=== PATIENT | female | born 1935 | race Two or more races ===

== ENCOUNTER 2019-03-18 18:11 | Emergency (ER) | payer OTHER, MEDICARE ==
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
[2019-03-18 20:17] VITALS: BP 174/50
== END 2019-03-18 20:17 | disposition home or self-care (01) ==
LOC: ER 18:11
DX: S13.4XXA Sprain of ligaments of cervical spine, initial encounter (principal); R51 Headache; R07.9 Chest pain, unspecified; V49.50XA Passenger injured in collision with unspecified motor vehicles in traffic accident, initial encounter; I10 Essential (primary) hypertension; E11.9 Type 2 diabetes mellitus without complications; Z88.0 Allergy status to penicillin
CPT/HCPCS: 70450; 71046; 72125; 99284

== ENCOUNTER 2020-02-15 10:44 | Emergency (ER) | payer MEDICARE, OTHER ==
--- NOTE | 2020-02-15 11:02 | ER Document Report ---
ED Medical Screen (RME) - General Chief Complaint: Leg Pain Stated Complaint: FALL/LEG PAIN Time Seen by Provider: 02/15/20 10:51 Mode of Arrival: Wheelchair Information source: Patient, Relative Notes: 84-year-old female presented to ED for complaint of left leg pain and swelling with left knee pain. Daughter speaks for the patient today she states that the pain is been for the last couple days. She states that the pain is so bad that she can barely walk on it now. She states she is given her Tylenol Motrin and BenGay with no relief from the pain. She states she does have a history of diabetes left breast cancer high blood pressure and cholesterol. 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 Patient is alert and oriented speaking in sentences to her daughter. Lungs are clear at this time. She states the only pain is to the left leg and knee. I have greeted and performed a rapid initial assessment of this patient. A comprehensive ED assessment and evaluation of the patient, analysis of test results and completion of medical decision making process will be conducted by an additional ED providers. TRAVEL OUTSIDE OF THE [place] IN LAST 30 DAYS: No - Related Data Allergies/Adverse Reactions: Penicillins Allergy (Verified 02/15/20 10:52) Home Medications: htn. cholesterol. breast ca/lumpectomy Past Medical History - Social History Chew tobacco use (# tins/day): No Frequency of alcohol use: None - Past Medical History Cardiac Medical History: Reports: Hx Hypercholesterolemia, Hx Hypertension Neurological Medical History: Reports: Hx Cerebrovascular Accident - 25+ years ago Endocrine Medical History: Reports: Hx Diabetes Mellitus Type 2 - metformin Renal/ Medical History: Denies: Hx Peritoneal Dialysis Past Surgical History: Reports: Hx Cholecystectomy Physical Exam - Vital signs Vitals: Temp Pulse Resp BP Pulse Ox 98.8 F 88 20 182/65 H 100 02/15/20 10:49 02/15/20 10:49 02/15/20 10:49 02/15/20 10:49 02/15/20 10:49 Course - Vital Signs Vital signs: Temp Pulse Resp BP Pulse Ox 98.8 F 88 20 182/65 H 100 02/15/20 10:52 02/15/20 10:49 02/15/20 10:49 02/15/20 10:49 02/15/20 10:49
[2020-02-15 11:31] LABS: ABSOLUTE BASOPHILS # (AUTO) 0.1 10^3/uL (0.0-0.2); ABSOLUTE EOSINOPHILS # (AUTO) 0.1 10^3/uL (0.0-0.6); ABSOLUTE LYMPHOCYTES (AUTO) 1.1 10^3/uL (0.5-4.7); ABSOLUTE MONOCYTES (AUTO) 0.5 10^3/uL (0.1-1.4); ABSOLUTE NEUT (AUTO) 5.8 10^3/uL (1.7-8.2); BASOPHILS % (AUTO) 1.2 % (0-2); EOSINOPHILS % (AUTO) 1.5 % (0-6); HEMATOCRIT 35.9 % (36.0-47.0); HEMOGLOBIN 12.3 g/dL (12.0-15.5); MEAN CORPUSCULAR HEMOGLOBIN 28.6 pg (27.0-33.4); MEAN CORPUSCULAR HGB CONC 34.3 g/dL (32.0-36.0); MEAN CORPUSCULAR VOLUME 83 fl (80-97); MONOCYTES % (AUTO) 6.2 % (3-13); PLATELET COUNT 299 10^3/uL (150-450); RED BLOOD COUNT 4.31 10^6/uL (3.72-5.28); RED CELL DISTRIBUTION WIDTH 13.7 % (11.5-14.0); SEGMENTED NEUTROPHILS % (AUTO) 77.1 % (42-78); TOTAL CELLS COUNTED % (AUTO) 100 %; WHITE BLOOD COUNT 7.5 10^3/uL (4.0-10.5)
[2020-02-15 11:46] LABS: ALBUMIN 4.1 g/dL (3.5-5.0); ALKALINE PHOSPHATASE 318 U/L (38-126); ANION GAP 6 (5-19); ASPARTATE AMINO TRANSFERASE 317 U/L (14-36); BILIRUBIN,DIRECT 0.1 mg/dL (0.0-0.4); BILIRUBIN,TOTAL 0.5 mg/dL (0.2-1.3); BLOOD UREA NITROGEN 22 mg/dL (7-20); CALCIUM 9.7 mg/dL (8.4-10.2); CARBON DIOXIDE 27 mmol/L (22-30); CHLORIDE 107 mmol/L (98-107); GLUCOSE 196 mg/dL (75-110); POTASSIUM 4.6 mmol/L (3.6-5.0); TOTAL PROTEIN 7.9 g/dL (6.3-8.2)
--- NOTE | 2020-02-15 11:47 | RADIOLOGY REPORT (SQ) ---
EXAM DESCRIPTION: KNEE LEFT 4 VIEW IMAGES COMPLETED DATE/TIME: 02/15/2020 11:12 am REASON FOR STUDY: pain and swelling COMPARISON: None. NUMBER OF VIEWS: Four views. TECHNIQUE: AP, lateral, and both oblique radiographic images acquired of the left knee. LIMITATIONS: None. FINDINGS: MINERALIZATION: Osteopenic BONES: No acute fracture or dislocation. No worrisome bone lesions. JOINT: No suprapatellar joint effusion. Mild medial compartment joint space narrowing without bulky bony spurring SOFT TISSUES: No soft tissue swelling. No radio-opaque foreign body. OTHER: No other significant finding. IMPRESSION: No acute findings TECHNICAL DOCUMENTATION: JOB ID: [id number] 2010 [employer]- All Rights Reserved Reading location - IP/workstation name: [email or web address]
--- NOTE | 2020-02-15 12:45 | RADIOLOGY REPORT (SQ) ---
EXAM DESCRIPTION: VENOUS UNILATERAL LOWER IMAGES COMPLETED DATE/TIME: 02/15/2020 12:34 pm REASON FOR STUDY: left lower extremity pain and swelling COMPARISON: None. TECHNIQUE: Dynamic and static connor scale and color images acquired of the left leg venous system. Se lected spectral images acquired with additional compression and augmentation maneuvers. The contralat eral common femoral vein and saphenofemoral junction were also imaged. Images stored on PACS. LIMITATIONS: None. FINDINGS: COMMON FEMORAL: Normal phasicity, compression and augmentation. No visualized echogenic ma terial on connor scale. No defects on color images. FEMORAL: Normal compression and augmentation. No visualized echogenic material on connor scale. No defe cts on color images. POPLITEAL: Normal compression, augmentation. No visualized echogenic material on connor scale. No defec ts on color images. CALF VESSELS: Normal compression, augmentation. No visualized echogenic material on connor scale. No de fects on color images. GSV and SSV: Normal compression, augmentation. No visualized echogenic material on connor scale. No def ects on color images. ANY DEEP VENOUS INSUFFICIENCY: Not evaluated. ANY EVIDENCE OF POPLITEAL CYST: No. OTHER: No other significant finding. CONTRALATERAL COMMON FEMORAL VEIN AND SAPHENOFEMORAL JUNCTION: Normal phasicity, compression and augmentation. No visualized echogenic material on connor scale. No de fects on color images. IMPRESSION: NO EVIDENCE OF DVT OR SVT IN THE LEFT LEG. TECHNICAL DOCUMENTATION: JOB ID: [id number] [place]-72 2010 [employer]'- All Rights Reserved Reading location - IP/workstation name: [email or web address]
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
--- NOTE | 2020-02-15 14:03 | RADIOLOGY REPORT (SQ) ---
EXAM DESCRIPTION: FOOT LEFT 2 VIEWS IMAGES COMPLETED DATE/TIME: 02/15/2020 1:47 pm REASON FOR STUDY: fall/pain COMPARISON: None. EXAM PARAMETERS: NUMBER OF VIEWS: Three views. TECHNIQUE: AP, lateral and oblique radiographic images acquired of the left foot. LIMITATIONS: None. FINDINGS: MINERALIZATION: Osteopenia. BONES: No acute fracture or dislocation. No worrisome bone lesions. JOINTS: No effusion. SOFT TISSUES: No significant soft tissue swelling. No radiopaque foreign body. OTHER: No other significant finding. IMPRESSION: NO FRACTURE. TECHNICAL DOCUMENTATION: JOB ID: [id number] [place]-72 2010 [employer]- All Rights Reserved Reading location - IP/workstation name: [email or web address]
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
--- NOTE | 2020-02-15 14:05 | RADIOLOGY REPORT (SQ) ---
EXAM DESCRIPTION: PELVIS AP IMAGES COMPLETED DATE/TIME: 02/15/2020 1:47 pm REASON FOR STUDY: fall/pain right side COMPARISON: None. NUMBER OF VIEWS: One view TECHNIQUE: AP Pelvis LIMITATIONS: None. FINDINGS: MINERALIZATION: Osteopenia. HIPS: No acute fracture or dislocation. No worrisome bone lesions. PELVIS AND SACRUM: No acute fracture or dislocation. No worrisome bone lesions. PUBIS AND ISCHIUM: No acute fracture. LOWER LUMBAR SPINE: No significant findings as visualized. SOFT TISSUES: No findings. OTHER: No other significant finding. IMPRESSION: No fracture identified. COMMENT: Pelvic fractures are often occult on plain radiographs. If strong clinical suspicion for f racture, recommend CT or MR. TECHNICAL DOCUMENTATION: JOB ID: [id number] [place]-72 2010 [facility]- All Rights Reserved Reading location - IP/workstation name: [email or web address]
[2020-02-15] MEDS ORDERED: TRAMADOL HCL 50 MG TABLET PO ONE (14:53)
--- NOTE | 2020-02-15 15:59 | ER Document Report ---
Entered by MICHELA ROMERO SCRIBE 02/15/20 1221 Acting as scribe for:KANA TORRES MD ED General - General Chief Complaint: Leg Pain Stated Complaint: FALL/LEG PAIN Time Seen by Provider: 02/15/20 10:51 Primary Care Provider: CYNDY TAO NP [Primary Care Provider] - Follow up as needed Mode of Arrival: Wheelchair Information source: Relative Notes: This 84 year old female patient presents to the emergency department today with complaints of pain in her left knee and foot. Patient's daughter is at bedside and giving the patient's history. Patient slipped when hanging up a towel x3 days ago. Patient braced herself, did not fall, and denies loss of consciousness. Since x3 days ago patient reports pain in her left lower extremity when ambulating. Denies pain in her neck or back. TRAVEL OUTSIDE OF THE [place] IN LAST 30 DAYS: No - Related Data Allergies/Adverse Reactions: Penicillins Allergy (Verified 02/15/20 10:52) Home Medications: htn. cholesterol. breast ca/lumpectomy Past Medical History - General Information source: Patient, Relative - Social History Smoking Status: Never Smoker Cigarette use (# per day): No Chew tobacco use (# tins/day): No Frequency of alcohol use: None Family History: None, Reviewed & Not Pertinent Patient has homicidal ideation: No - Past Medical History Cardiac Medical History: Reports: Hx Hypercholesterolemia, Hx Hypertension Neurological Medical History: Reports: Hx Cerebrovascular Accident - 25+ years ago Endocrine Medical History: Reports: Hx Diabetes Mellitus Type 2 - metformin Past Surgical History: Reports: Hx Breast Surgery - lumpectomy, Hx Cholecystectomy Review of Systems - Review of Systems Constitutional: No symptoms reported EENT: No symptoms reported Cardiovascular: No symptoms reported Respiratory: No symptoms reported Gastrointestinal: No symptoms reported Genitourinary: No symptoms reported Female Genitourinary: No symptoms reported Musculoskeletal: See HPI, Other - LLE pain. denies: Back pain, Neck pain Skin: No symptoms reported Hematologic/Lymphatic: No symptoms reported Neurological/Psychological: See HPI. denies: Lost consciousness -: Yes All other systems reviewed and negative Physical Exam - Vital signs Vitals: Temp Pulse Resp BP Pulse Ox 98.8 F 88 20 182/65 H 100 02/15/20 10:49 02/15/20 10:49 02/15/20 10:49 02/15/20 10:49 02/15/20 10:49 - General General appearance: Appears well, Alert - HEENT Head: Normocephalic, Atraumatic Eyes: Normal Pupils: PERRL - Respiratory Respiratory status: No respiratory distress Chest status: Nontender Breath sounds: Normal Chest palpation: Normal - Cardiovascular Rhythm: Regular Heart sounds: Normal auscultation Murmur: No - Extremities General upper extremity: Normal inspection. No: Edema Notes: Tenderness with palpation to the left foot and ankle. Tenderness with movement of the left knee. Full ROM. Tenderness with palpation to the left distal femur and hip. Able to rotate hip. No shortening of the left leg. - Neurological Neuro grossly intact: Yes Cognition: Normal Orientation: AAOx4 Speech: Normal - Psychological Associated symptoms: Normal affect, Normal mood - Skin Skin Temperature: Warm Skin Moisture: Dry Skin Color: Normal Course - Re-evaluation Re-evalutation: 02/15/20 15:48 Patient reports that her pain has improved after getting a tramadol tablet. Patient reports there is still residual pain in her lower tibial anterior region. We have x-rays on that area and do not see any acute fracture. - Vital Signs Vital signs: Temp Pulse Resp BP Pulse Ox 98.8 F 88 20 182/65 H 100 02/15/20 10:52 02/15/20 10:49 02/15/20 10:49 02/15/20 10:49 02/15/20 10:49 02/15/20 15:49 Vital signs are stable except for systolic hypertension. 02/15/20 15:50 Patient has history of hypertension currently does not appear to be on antihypertensive medications. Patient is elevated blood pressure may be related to her pain. - Laboratory Result Diagrams: 02/15/20 11:05 02/15/20 11:05 Laboratory results interpreted by me: 02/15/20 02/15/20 02/15/20 11:05 11:05 11:05 Hct 35.9 L BUN 22 H Est GFR ( Amer) 56 L Est GFR (MDRD) Non-Af 46 L Glucose 196 H POC Glucose AST 317 H ALT 181 H Alkaline Phosphatase 318 H NT-Pro-B Natriuret Pep 1540 H Acetaminophen 02/15/20 02/15/20 11:05 14:38 Hct BUN Est GFR ( Amer) Est GFR (MDRD) Non-Af Glucose POC Glucose 163 H AST ALT Alkaline Phosphatase NT-Pro-B Natriuret Pep Acetaminophen < 10 L 02/15/20 15:51 Patient has elevated liver function tests. Patient has no pain in her abdomen no rebound no tenderness gallbladder is absent. Patient reports that she has been taking an anticholesterol medication and had to discontinue medications earlier this year. Due to elevated liver function tests. Patient reports that once off the medication she had a recheck of her liver functions in December 2019 and learned that her liver function tests that returned to normal and therefore was restarted on a lipid-lowering agent. Today patient has elevated LFTs again most likely related to lipid-lowering agent that she is taking. Patient has no history of hepatitis or blood transfusions and her Tylenol level is less than 10. Patient does not have an elevated bilirubin and has no abdominal pain or nausea or vomiting. - Diagnostic Test Radiology reviewed: Image reviewed, Reports reviewed Radiology results interpreted by me: 02/15/20 15:50 Plain film x-rays were done pelvis shows no acute process no fracture no dislocation. Plain film x-ray left femur no acute fracture Plain film x-ray knee left knee no acute fracture or dislocation. Plain film x-ray tibia-fibula no acute fracture Plain film foot no acute fracture Discharge - Discharge Clinical Impression: Accidental fall, Left foot pain, Pain of left lower extremity, Elevated blood pressure, situational Condition: Stable Disposition: HOME, SELF-CARE Additional Instructions: You had an accidental fall a few days ago and pain in your left lower extremity from the hip down. We have not found any fractures to indicate that there is any broken bones or any dislocated areas of your bones. Plan is for you to take Tylenol on an as-needed basis and I would recommend that you take 500 mg tablet 1 3 times daily if needed for pain. You also have an elevated liver function test which is most likely related to your lipid cholesterol-lowering medication. This is something that you have had before when you had to discontinue your medication and once you had discontinued your medications and your levels went back to normal for your liver function test in December you were restarted on another lipid lowering cholesterol medication. With that said it appears that you have a return of the same problem with elevation in your liver function tests your Tylenol level today is normal so that is not causing the problem. And you have not had any blood transfusions or any signs of hepatitis that is been known. You also have allergies to certain pain medications and I recommended you take Tylenol 500 mg 1 tablet 3 times a day if needed for pain do follow-up closely with your primary care doctor regarding the discontinuation of lipid-lowering agent as you are currently taking and to follow-up with your doctor for monitoring of your liver function tests. Another problem today is noted that your systolic blood pressure is elevated. At one time you were taken blood pressure medications and it appears that currently you are not on any medication for blood pressure management. Today your blood pressure may be elevated due to your pain that you are having in your left lower extremity however I do recommend that you follow-up very soon with your primary care doctor to determine if your blood pressure remains elevated. Forms: Elevated Blood Pressure Referrals: CYNDY TAO NP [Primary Care Provider] - Follow up as needed I personally performed the services described in the documentation, reviewed and edited the documentation which was dictated to the scribe in my presence, and it accurately records my words and actions.
[2020-02-15 16:25] VITALS: BP 155/68
== END 2020-02-15 16:15 | disposition home or self-care (01) ==
LOC: ER 10:44
DX: M79.672 Pain in left foot (principal); M79.662 Pain in left lower leg; M25.562 Pain in left knee; W18.40XA Slipping, tripping and stumbling without falling, unspecified, initial encounter; Y93.89 Activity, other specified; R79.89 Other specified abnormal findings of blood chemistry; I10 Essential (primary) hypertension; E11.9 Type 2 diabetes mellitus without complications; E78.00 Pure hypercholesterolemia, unspecified; Z79.899 Other long term (current) drug therapy; Z88.0 Allergy status to penicillin
CPT/HCPCS: 99284; 36415; 82962; 80307; 85025; 80053; 83880; 93971; 73552; 73620; 73564; 72170; 73590; A9270

== ENCOUNTER → 2020-04-01 | Outpatient (CLI) | payer MEDICARE ==
--- NOTE | 2020-04-02 15:53 | RADIOLOGY REPORT (SQ) ---
EXAM DESCRIPTION: MRI IAC WWO IMAGES COMPLETED DATE/TIME: 04/01/2020 6:22 pm REASON FOR STUDY: H93.12 TINNITUS, LEFT EAR R42 DIZZINESS AND GIDDINESS COMPARISON: CT 2019 TECHNIQUE: Multiplanar imaging includes non-contrasted T1, T2, FLAIR, diffusion with ADC map and pos t gadolinium contrast sequences. Additional thin slice images with and without gadolinium contrast a cquired in the posterior fossa. Images stored on PACS. CONTRAST TYPE AND DOSE: Not provided. RENAL FUNCTION: Not indicated. ACR Type II contrast agent associated with few, if any, unconfounded cases of NSF LIMITATIONS: None. FINDINGS: ANATOMY: No anomalies. Normal vascular flow voids. Pituitary fossa normal. CSF SPACES: Age-appropriate. No extra-axial hemorrhage, focal fluid or mass or abnormal enhancement. No hydrocephalus. Slight ventriculomegaly is related to parenchymal volume loss/atrophy. CEREBRUM: High signal intensity lesions scattered through white matter on FLAIR imaging with distribu tion suggesting chronic micro-vascular ischemic changes. No hemorrhage. No edema, masses or mass ef fect. No enhancing lesions. POSTERIOR FOSSA: No signal alteration. No edema, masses, mass effect. Internal Auditory Canals, Cereb ello-pontine angles, mastoids normal. No enhancing lesions. Detailed imaging of the 5th, 7th, and 8th nerves and [place] within normal limits with no enhancing lesions. DIFFUSION IMAGING: Negative for acute or sub-acute infarction. ORBITS: No masses. Globes normal. PARANASAL SINUSES: No fluid levels. Mucosa normal. OTHER: No other significant finding. IMPRESSION: 1. Chronic changes in the brain. Small vessel disease and mild atrophy. 2. Unremarkable appearance of the posterior fossa to include the IAC's. TECHNICAL DOCUMENTATION: JOB ID: [id number] [employer]- All Rights Reserved Reading location - IP/workstation name: [email or web address]
== END ==
LOC: RAD 16:05
PROVIDERS: ATTEND Otolaryngology
DX: H93.12 Tinnitus, left ear (principal)
CPT/HCPCS: 82565; 70553; A9576

== ENCOUNTER → 2020-05-17 | Day surgery (SDC) | payer MEDICARE ==
[~2020-05-17] MED LIST: BUPIVACAINE HCL 0.5 % INJ/PF 30 ML SDV ONE; METHYLPREDNISOLONE ACETATE INJ 80 MG/1 ML VIAL ONE
--- NOTE | 2020-05-17 16:34 | RADIOLOGY REPORT (SQ) ---
EXAM DESCRIPTION: INJECT/ASPIR HIP/SHLDR/KNEE; FLUORO/NEEDLE PLACEMENT IMAGES COMPLETED DATE/TIME: 05/17/2020 3:06 pm REASON FOR STUDY: PRIMARY OSTEOARTHRITIS, RIGHT SHOULDER M19.011 PRIMARY OSTEOARTHRITIS, RIGHT SHOU LDER COMPARISON: None. FLUOROSCOPY TIME: 1 minutes 1 images saved to PACS. LIMITATIONS: None. PROCEDURE: SITE OF INJECTION: Right anterior shoulder LOCALIZING CONTRAST TYPE AND DOSE: 1 mL Omnipaque 300 MEDICATION TYPE AND DOSE: 80 mg Depo-Medrol, 5 mL 0.5% bupivacaine. Using local anesthesia and sterile technique with fluoroscopic guidance, the needle was advanced into the joint. Iodinated contrast was injected to verify intraarticular placement. This was followed by therapeutic injection of the indicated medications. The needle was removed. There were no immediat e complications. IMPRESSION: THERAPEUTIC INJECTION OF THE RIGHT SHOULDER JOINT ABOVE. COMMENT: Patient medication list reviewed: Yes- Quality ID# [id number]:Eligible professional attests to doc umenting in the medical record they obtained, updated, or reviewed the patient's current medications. . Quality ID 145: Final reports for procedures using fluoroscopy that document radiation exposure sofi isabel, or exposure time and number of fluorographic images (if radiation exposure indices are not avail able) TECHNICAL DOCUMENTATION: JOB ID: [id number] 2010 [employer]- All Rights Reserved Reading location - IP/workstation name: [email or web address] [id number]
--- NOTE | 2020-05-17 16:34 | RADIOLOGY REPORT (SQ) ---
EXAM DESCRIPTION: INJECT/ASPIR HIP/SHLDR/KNEE; FLUORO/NEEDLE PLACEMENT IMAGES COMPLETED DATE/TIME: 05/17/2020 3:06 pm REASON FOR STUDY: PRIMARY OSTEOARTHRITIS, RIGHT SHOULDER M19.011 PRIMARY OSTEOARTHRITIS, RIGHT SHOU LDER COMPARISON: None. FLUOROSCOPY TIME: 1 minutes 1 images saved to PACS. LIMITATIONS: None. PROCEDURE: SITE OF INJECTION: Right anterior shoulder LOCALIZING CONTRAST TYPE AND DOSE: 1 mL Omnipaque 300 MEDICATION TYPE AND DOSE: 80 mg Depo-Medrol, 5 mL 0.5% bupivacaine. Using local anesthesia and sterile technique with fluoroscopic guidance, the needle was advanced into the joint. Iodinated contrast was injected to verify intraarticular placement. This was followed by therapeutic injection of the indicated medications. The needle was removed. There were no immediat e complications. IMPRESSION: THERAPEUTIC INJECTION OF THE RIGHT SHOULDER JOINT ABOVE. COMMENT: Patient medication list reviewed: Yes- Quality ID# [id number]:Eligible professional attests to doc umenting in the medical record they obtained, updated, or reviewed the patient's current medications. . Quality ID 145: Final reports for procedures using fluoroscopy that document radiation exposure sofi isabel, or exposure time and number of fluorographic images (if radiation exposure indices are not avail able) TECHNICAL DOCUMENTATION: JOB ID: [id number] 2010 [employer]- All Rights Reserved Reading location - IP/workstation name: [email or web address] [id number]
== END ==
LOC: RAD 13:25
PROVIDERS: ATTEND Family Medicine
DX: M19.011 Primary osteoarthritis, right shoulder (principal)
CPT/HCPCS: 20610; 77002; J3490; J1040

== ENCOUNTER → 2020-08-04 | Outpatient (CLI) | payer MEDICAID, MEDICARE | LOC: RAD 14:36 | PROVIDERS: ATTEND Nurse Practitioner | DX: R94.5 Abnormal results of liver function studies (principal); R10.84 Generalized abdominal pain ==